=== PATIENT | female | born 2000 | race Caucasian/White ===

== ENCOUNTER 2018-03-21 02:58 | Emergency (ER) | payer SELFPAY ==
[2018-03-21 05:10] VITALS: BP 122/74
--- NOTE | 2018-03-21 05:57 | ED ---
Substance Abuse/Use - HPI Summary HPI Summary: The patient is a 17 y.o female who is presenting to the [facility] with a chief complaint of substance abuse. The patient was accompanied by her female acquisitions librarian. She had reportedly taken LSD which she reports to be only 1 tab. She has a hx of LSD use where her previous attempt she had taken 1/2 a tab. Currently, she reports to be experiencing hallucinatory symptoms as well as abd pain. She denies chest pain. The onset of the usage of the LSD was 1999. Pt is aware of her location and is currently a student at [employer]. Symptoms aggravated by nothing. Symptoms alleviated by nothing. No other substance was reportedly taken. - History Of Current Complaint Chief Complaint: EDSubstanceAbuse Stated Complaint: GENERAL ILLNESS Time Seen by Provider: 03/21/18 03:09 Hx Obtained From: Patient, Other: - Female acquisitions librarian Ingestion History: Type/Name Of Drug - LSD, Amount Ingested - 1 tab, Approximate Time Of Ingestion - 1999 - Allergies/Home Medications Allergies/Adverse Reactions: Allergies Allergy/AdvReac Type Severity Reaction Status Date / Time No Known Allergies Allergy Verified 03/21/18 05:34 Home Medications: Home Medications NK [No Home Medications Reported] 03/21/18 [History Confirmed 03/21/18] PMH/Surg Hx/FS Hx/Imm Hx Sensory History: Denies: Hx Legally Blind, Hx Vision Problem, Hx Deafness Opthamlomology History: Denies: Hx Legally Blind EENT History: Denies: Hx Deafness, Hx Hearing Aid Psychiatric History: Reports: Hx Substance Abuse - LSD Infectious Disease History: No Infectious Disease History: Denies: Traveled Outside the [place] in Last 30 Days - Social History Alcohol Use: Occasionally Substance Use Type: Reports: Marijuana, Other Substance Use Comment - Amount & Last Used: Marijuana - daily, acid Smoking Status (MU): Unknown if Ever Smoked Review of Systems Constitutional: Negative Eyes: Negative ENT: Negative Negative: Chest Pain Respiratory: Negative Positive: Abdominal Pain Genitourinary: Negative Musculoskeletal: Negative Skin: Negative Neurological: Negative Psychological: Other - Hallucinations All Other Systems Reviewed And Are Negative: Yes Physical Exam - Summary Physical Exam Summary: GENERAL: Patient is a well-developed and nourished Female who is lying comfortable in the stretcher. Patient is not in any acute respiratory distress. HEAD AND FACE: Normocephalic EYES: PERRLA, EOMI x 2. EARS: Hearing grossly intact. MOUTH: Oropharynx within normal limits. NECK: Supple, trachea is midline, no adenopathy, no JVD, no carotid bruit. CHEST: Symmetric, no tenderness at palpation LUNGS: Clear to auscultation bilaterally. No wheezing or crackles. CVS: Regular rate and rhythm, S1 and S2 present, no murmurs or gallops appreciated. ABDOMEN: Soft, non-tender. Bowel sounds are normal. No abdominal abnormal pulsations. EXTREMITIES: Full ROM in all major joints, no edema, no cyanosis or clubbing. NEURO: Alert and oriented x 3. No acute neurological deficits. Speech is normal and follows commands. SKIN: Dry and warm Normal Triage Information Reviewed: Yes Vital Signs On Initial Exam: Initial Vitals Resp BP 16 123/78 03/21/18 02:58 03/21/18 02:58 Vital Signs Reviewed: Yes Diagnostics - Vital Signs Vital Signs Temp Pulse Resp BP Pulse Ox 03/21/18 05:13 98.9 F 84 20 122/74 97 03/21/18 05:00 88 22 97 03/21/18 04:58 91 21 122/74 96 03/21/18 04:37 90 22 126/79 99 03/21/18 04:01 88 19 99 03/21/18 03:59 87 16 132/68 99 03/21/18 03:28 88 19 117/71 99 03/21/18 03:08 87 13 99 03/21/18 03:03 97.8 F 83 16 123/78 100 03/21/18 02:58 16 123/78 - Laboratory Lab Statement: Any lab studies that have been ordered have been reviewed, and results considered in the medical decision making process. Course/Dx - Course Course Of Treatment: The pt is a 17 y.o female who is presenting to the [facility] with a chief complaint of substance abuse. The pateint has taken LSD (1 tab). The workup is remarkable with reports of hallucinatory symptoms and abd pain. Upon reevaluation at a later time, the patient reports improvement in condition and back to baseline. The dx will be illicit drug use. The patient will be discharged home after we discussed results with patient. She is hemodynamically stable and safe for discharge. Strict return precautions given and he/she will otherwise follow up with her PCP. - Diagnoses Provider Diagnoses: Illicit drug use Discharge - Sign-Out/Discharge Documenting (check all that apply): Patient Departure - Discharge Home - Discharge Plan Condition: Stable Disposition: HOME Patient Education Materials: Polysubstance Abuse (ED) Referrals: No Primary Care Phys,NOPCP [Primary Care Provider] - Additional Instructions: Follow up with your primary care physician in 1-3 days. RETURN TO THE EMERGENCY DEPARTMENT FOR CHANGING OR WORSENING SYMPTOMS. - Billing Disposition and Condition Condition: STABLE Disposition: Home - Attestation Statements Document Initiated by Scribe: Yes Documenting Scribe: Raymond Hernandez Provider For Whom Shruthi is Documenting (Include Credential): Dr. Josue Scruggs Scribe Attestation: Raymond Mckeon scribed for Dr. Josue Scruggs on 03/21/18 at 0621. Scribe Documentation Reviewed: Yes Provider Attestation: The documentation as recorded by the Raymond hopkins accurately reflects the service I personally performed and the decisions made by , Dr. Josue Scruggs Status of Scribe Document: Viewed
== END 2018-03-21 05:16 | disposition home or self-care (01) ==
LOC: ED 02:58
DX: F16.10 Hallucinogen abuse, uncomplicated (principal)
CPT/HCPCS: 99282

== ENCOUNTER 2018-07-29 12:47 | Emergency (ER) | payer BC ==
[2018-07-29] MEDS ORDERED: Ondansetron INJ* 2 MG/ML VIAL IV ONE (15:37)
[2018-07-29] MEDS ORDERED: Famotidine IV* 10 MG/ML 2 ML (20 mg) IV ONE (15:37)
[2018-07-29 15:39] LABS: ABS Basophils 0.1 10^3/ul (0-0.2); ABS Eosinophils 0 10^3/ul (0-0.6); ABS Lymphocytes 2.2 10^3/ul (1.0-4.8); ABS Monocytes 0.8 10^3/ul (0-0.8); ABS Nucleated RBC 0 10^3/ul; Eosinophil % 0.3 %; Hematocrit 44 % (33-41); Hemoglobin 15.1 g/dL (12.0-16.0); Lymphocyte % 17.9 %; Mean Corpuscular HGB Conc 34 g/dL (31-36); Mean Corpuscular Hemoglobin 29 pg (27-31); Mean Corpuscular Volume 86 fL (80-97); Mean Platelet Volume 7.6 fL (7.4-10.4); Nucleated Red Blood Cells % 0.1; Platelet Count 361 10^3/uL (150-450); Red Blood Count 5.15 10^6 /uL (3.70-4.87); Red Cell Distribution Width 14 % (10.5-15); White Blood Count 12.1 10^3/uL (3.5-10.8)
[2018-07-29 16:06] LABS: HCG Pregnancy < 0.60 mIU/mL
--- NOTE | 2018-07-29 16:08 | ED ---
Abdominal Pain/Female - HPI Summary HPI Summary: 17 year old F presenting to [facility] accompanied by friend and roommate Ebonie complains of central abdominal pain since 2 days ago and bilateral flank pain since 3 days ago. The patient rates the pain 5/10 in severity. Symptoms aggravated by nothing. Symptoms alleviated by nothing. Patient reports decreased appetite, nausea, chills. Patient denies dysuria, black or dark stools , vomiting, chest pain. Patient was seen on Urgent Care 2 days ago where she had negative urine test. Patient has hx UTI, hx anxiety, hx asthma. Patient reports having one sexual partner. She states she used to have IUD but had it taken out in two months ago. She had not been using condoms until she had her IUD removed. She denies vaginal bleeding or discharge. Patient has hx chlamydia in May 2018. - History of Current Complaint Chief Complaint: EDAbdPain Stated Complaint: BAD ABD PAIN PER PT Time Seen by Provider: 07/29/18 15:31 Hx Obtained From: Patient Onset/Duration: Lasting Days - 3, Still Present Timing: Constant Severity Currently: Moderate Pain Intensity: 5 Pain Scale Used: 0-10 Numeric Location: Other - central Aggravating Factor(s): Nothing Alleviating Factor(s): Nothing Associated Signs and Symptoms: Positive: Negative - dysuria, black or dark stools, vomiting, chest pain, vaginal bleeding or discharge, Other: - decreased appetite, nausea, chills Allergies/Adverse Reactions: Allergies Allergy/AdvReac Type Severity Reaction Status Date / Time No Known Allergies Allergy Verified 07/29/18 12:59 PMH/Surg Hx/FS Hx/Imm Hx Previously Healthy: No - hx chlamydia Respiratory History: Reports: Hx Asthma Sensory History: Denies: Hx Legally Blind, Hx Vision Problem, Hx Deafness, Hx Hearing Aid Opthamlomology History: Denies: Hx Legally Blind, Hx Vision Problem Psychiatric History: Reports: Hx Anxiety, Hx Substance Abuse - LSD - Surgical History Surgery Procedure, Year, and Place: None reported Infectious Disease History: No Infectious Disease History: Denies: Traveled Outside the [place] in Last 30 Days - Family History Known Family History: Negative: Blood Disorder - Social History Alcohol Use: Occasionally Hx Substance Use: Yes Substance Use Type: Reports: Marijuana Substance Use Comment - Amount & Last Used: Marijuana - daily, acid Review of Systems Positive: Chills Negative: Chest Pain Gastrointestinal: Negative - dark stools Positive: Abdominal Pain - central, Nausea, Other - decreased appetite. Negative: Vomiting Genitourinary: Negative - vaginal bleeding Positive: flank pain - bilateral. Negative: dysuria, discharge All Other Systems Reviewed And Are Negative: Yes Physical Exam - Summary Physical Exam Summary: Constitutional: Well-developed, Well-nourished, Alert. (-) Distressed Skin: Warm, Dry HENT: Normocephalic; Atraumatic Eyes: Conjunctiva normal Neck: Musculoskeletal ROM normal neck. (-) JVD, (-) Stridor, (-) Tracheal deviation Cardio: Rhythm regular, rate normal, Heart sounds normal; Intact distal pulses; The pedal pulses are 2+ and symmetric. Radial pulses are 2+ and symmetric. Pulmonary/Chest wall: Effort normal. (-) Respiratory distress, (-) Wheezes, (-) Rales Abd: She is localizing discomfort to hypogastric pain but her abdomen is not tender. There are no masses Musculoskeletal: (-) Edema Neuro: Alert, Oriented x3 Psych: Mood and affect Normal Triage Information Reviewed: Yes Vital Signs On Initial Exam: Initial Vitals Temp Pulse Resp BP Pulse Ox 97.8 F 90 16 146/99 98 07/29/18 12:56 07/29/18 12:56 07/29/18 12:56 07/29/18 12:56 07/29/18 12:56 Vital Signs Reviewed: Yes Diagnostics - Vital Signs Vital Signs Temp Pulse Resp BP Pulse Ox 07/29/18 14:27 98.1 F 75 22 110/74 99 07/29/18 12:56 97.8 F 90 16 146/99 98 - Laboratory Lab Results: Lab Results 07/29/18 Range/Units 15:30 WBC 12.1 H (3.5-10.8) 10^3/uL RBC 5.15 H (3.70-4.87) 10^6 /uL Hgb 15.1 (12.0-16.0) g/dL Hct 44 H (33-41) % MCV 86 (80-97) fL MCH 29 (27-31) pg MCHC 34 (31-36) g/dL RDW 14 (10.5-15) % Plt Count 361 (150-450) 10^3/uL MPV 7.6 (7.4-10.4) fL Neut % (Auto) 74.8 % Lymph % (Auto) 17.9 % Andrews % (Auto) 6.5 % Eos % (Auto) 0.3 % Baso % (Auto) 0.5 % Absolute Neuts (auto) 9.0 H (1.5-7.7) 10^3/ul Absolute Lymphs (auto) 2.2 (1.0-4.8) 10^3/ul Absolute Monos (auto) 0.8 (0-0.8) 10^3/ul Absolute Eos (auto) 0 (0-0.6) 10^3/ul Absolute Basos (auto) 0.1 (0-0.2) 10^3/ul Absolute Nucleated RBC 0 10^3/ul Nucleated RBC % 0.1 Result Diagrams: 07/29/18 15:30 07/29/18 15:30 Lab Statement: Any lab studies that have been ordered have been reviewed, and results considered in the medical decision making process. Re-Evaluation - Re-Evaluation First Eval Re-Evaluation Time: 17:50 Comment: Patient feels better and is ready to go home. She is agreeable to discharge plan. Abdominal Pain Fem Course/Dx - Course Course Of Treatment: In ED course, patient was given Pepcid and Zofran. Labs are leukocyte esterase positive, trace white cells positive. Patient has had symptoms of dysuria that began 2 days ago and has now progressed to flank pain. Patient also has a white count. For now, patient will be treated as early pylonephritis. GC in the urine will be tested. In absence of vaginal discharge, there is no immediate indication to empirically treat her for an STD. Patient was given instructions to [facility] up [facility] or [facility] as patient does not have established OBGYN and states she goes to [facility]. Patient will be discharged with prescription for Keflex. She understands to return to ED for new or worsening symptoms. She is agreeable to this plan. - Diagnoses Provider Diagnoses: Pyelonephritis Discharge - Sign-Out/Discharge Documenting (check all that apply): Patient Departure - Discharge Patient Received Moderate/Deep Sedation with Procedure: No - Discharge Plan Condition: Good Disposition: HOME Prescriptions: Cephalexin CAP* [Keflex CAP*] 500 mg PO TID #29 cap Patient Education Materials: Urinary Tract Infection in Women (ED) Print Language: ANGOLAN Referrals: No Primary Care Phys,NOPCP [Primary Care Provider] - - Attestation Statements Document Initiated by Scribe: Yes Documenting Scribe: Jojo Nuñez Provider For Whom Scribe is Documenting (Include Credential): Arnie Swan MD Scribe Attestation: IJojo, scribed for Arnie Swan MD on 07/29/18 at 1828. Status of Scribe Document: Ready
[2018-07-29 16:13] LABS: Albumin 4.9 g/dL (3.2-5.2); Anion Gap 7 mmol/L (2-11); CO2 Carbon Dioxide 27 mmol/L (22-32); Calcium 9.9 mg/dL (8.6-10.3); Chloride 103 mmol/L (101-111); Potassium 4.2 mmol/L (3.5-5.0); Sodium 137 mmol/L (135-145)
[2018-07-29 16:19] LABS: ALT 6 U/L (7-52); AST 16 U/L (13-39); Albumin/Globulin Ratio 1.8 (1-3); Alkaline Phosphatase 63 U/L (34-104); BUN/Creatinine Ratio 8.8 (8-20); Blood Urea Nitrogen 9 mg/dL (6-24); C Reactive Protein < 1.00 mg/L (<8.01); EGFR African American 84.5 (>60); EGFR Non-African American 69.8 (>60); Globulin 2.8 g/dL (2-4); Glucose 95 mg/dL (70-100); Total Protein 7.7 g/dL (6.4-8.9)
[2018-07-29 17:32] LABS: Urine Appearance Turbid; Urine Bacteria Absent (Absent); Urine Bilirubin Negative (Negative); Urine Blood 1+ (Negative); Urine Color Yellow; Urine Glucose Negative (Negative); Urine Ketones 1+ (Negative); Urine Nitrite Negative (Negative); Urine Protein Negative (Negative); Urine Red Blood Cell 2+(6-10/hpf) (Absent); Urine Specific Gravity 1.017 (1.010-1.030); Urine Squamous Epithelial Cell Present (Absent); Urine Urobilinogen Negative (Negative); Urine White Blood Cell Trace(0-5/hpf) (Absent)
[2018-07-29] MEDS ORDERED: Cephalexin CAP* 500 MG PO ONE (17:50)
[2018-07-29] MEDS ORDERED: Lactated Ringers 1000 ML Bag* 1,000 ML IV SCH (18:00)
[2018-07-29 18:18] VITALS: BP 124/73
[2018-07-30 14:09] LABS: Neisseria gonorrhoeae (GC) RNA Negative (Negative)
== END 2018-07-29 18:28 | disposition home or self-care (01) ==
LOC: ED 12:47
DX: N12 Tubulo-interstitial nephritis, not specified as acute or chronic (principal); J45.909 Unspecified asthma, uncomplicated; F41.9 Anxiety disorder, unspecified; F16.10 Hallucinogen abuse, uncomplicated; F12.90 Cannabis use, unspecified, uncomplicated
CPT/HCPCS: 36415; 80053; 81003; 81015; 83605; 83690; 84702; 85025; 86140; 87086; 87491; 87591; 96361; 96374; 96375; 99283; A9270-GY; J2405